=== PATIENT | male | born 1985 | race Caucasian/White ===

== ENCOUNTER 2024-03-22 13:41 | Outpatient (AMB) | payer OTHER, SELFPAY ==
--- NOTE | 2024-03-22 13:44 | AM.OFFWIN_ITS ---
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 Intake Note: pt is here for back pain Patient Tobacco Use Status: Never used Tobacco Allergies No Known Allergies Allergy (Verified 03/22/24 13:45) Do you need a note to return to daycare/school/sports/work: No HPI HPI Comments History of Present Illness Details Patient presents with back pain during work injury Was doing heavy lifting + spasm since it occurred Sunday In ; [employer] [place] [employer] He tried ibuprofen and rest Was feeling slightly better but said that he said 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 and onset of pain again 09/16 initially and now dull ache, worse with movement Located in center and a little on both sides; spasm worse on R Minimal ache in quads No urine or bowel movement issues No numbness or weakness PFSH Social History Patient Tobacco Use Status: Never used Tobacco Review of Systems Const Denies chills and Denies fever(s) GI Denies abdominal pain, Denies constipation, Denies diarrhea, Denies vomiting and Denies other (denies incontinence of urine or stool) Musc Reports back pain, Denies arthralgias, Denies numbness and Reports radiating pain into limb Skin/Breast Denies erythema and Denies rash Neuro Denies numbness Physical Exam Vital Signs: Last Vital Signs Pulse 66 03/22/24 13:47 BP 122/76 03/22/24 13:47 Pulse Ox 98 03/22/24 13:47 Oxygen Delivery Method Room Air 03/22/24 13:47 BMI result Body Mass Index 26.5 General: Non-toxic, NAD. Speaking full sentences. Skin: Warm dry throughout Eye: EOMI. Respiratory: No respiratory distress Cardiac: RRR. No murmur. No calf tenderness or LL edema. MSK: No midline spinal tenderness to cervical and thoracic spine. Minimal lumbar ttp but + R paravertebral lumbar muscle tenderness. Minimal ttp to L lumbar paravertebral muscles. Negative SLR sitting bilaterally. Gait slow. 5/5 strength dorsal flexion great toe bilaterally. Neurology: A/O. CN 2-12 grossly intact. No aphasia or facial droop. Psych: Good mood and affect Assessment & Plan Assessment & Plan (1) Lumbar back pain: Code(s): M54.50 - Low back pain, unspecified Plan: Patient seen and evaluated. No direct trauma or injury and no neuro deficit; no imaging warranted at this time Discussed steroid and muscle relaxant (steroid no alcohol or nsaids, muscle relaxant no alcohol or driving) Warm compress and stretch Avoid heavy lifting Patient gave verbal understanding and had no additional questions or concerns at time of discharge All questions answered Medications: New methocarbamol 750 mg PO TID PRN 14 tabs 0RF muscle spasm dexamethasone 4 mg PO BID 3 days 6 tabs 0RF Coding Level of Care Code New Pt Level 3 (49624) Diagnoses Lumbar back pain M54.50
[2024-03-22 13:47] VITALS: BP 122/76; PULSE 66; O2SAT 98; BMI 26.5
== END 2024-03-22 14:06 | disposition home or self-care (01) ==
PROVIDERS: Visit Provider Physician Assistant
DX: M54.50 Low back pain, unspecified (principal)

== ENCOUNTER → 2024-03-22 13:41 | Outpatient (BNVA) | payer OTHER, SELFPAY | PROVIDERS: Visit Provider Physician Assistant | DX: M54.50 Low back pain, unspecified (principal) | CPT/HCPCS: 99202 ==